=== PATIENT | male | born 1990 | race Hispanic/Latino ===

== ENCOUNTER 2020-10-05 00:29 | Emergency (ER) | payer OTHER, SELFPAY ==
[2020-10-05] MEDS ORDERED: MORPHINE 4 MG SYG ONE ×2 (01:00→03:37)
[2020-10-05] MEDS ORDERED: ONDANSETRON 4MG INJ ONE ×2 (01:00→01:05)
[2020-10-05 02:21] LABS: POTASSIUM 3.9 mmol/L (3.5-5.1)
[2020-10-05 02:26] LABS: ALBUMIN 4.5 g/dL (3.5-5.0); BILIRUBIN,TOTAL 0.7 mg/dL (0.2-1.0); TOTAL PROTEIN, SERUM 8.9 g/dL (6.0-8.3)
[2020-10-05 02:48] LABS: BASOPHILS % (AUTO) 0.4 % (0.0-5.0); EOSINOPHILS % (AUTO) 0.9 % (0.0-8.0); HEMATOCRIT 48.8 % (42-54); LYMPHOCYTES % (AUTO) 18.1 % (21.0-51.0); MEAN CORPUSCULAR HEMOGLOBIN 28.3 pg (27.0-33.0); MEAN CORPUSCULAR VOLUME 83.3 fL (79-99); MONOCYTES % (AUTO) 4.5 % (3.0-13.0); NEUTROPHILS % (AUTO) 75.5 % (40.0-77.0); PLATELET COUNT (AUTO) 239 K/uL (130-400); RED BLOOD CELL COUNT(AUTO) 5.86 MIL/uL (4.50-6.20); RED CELL DISTRIBUTION WIDTH 13.2 % (11.0-15.5); WHITE BLOOD COUNT (AUTO) 16.3 K/uL (4.8-10.8)
== END 2020-10-05 04:03 | disposition home or self-care (01) ==
LOC: EDH 00:29
DX: K80.80 Other cholelithiasis without obstruction (principal)
CPT/HCPCS: 36415; 76705; 80053; 83690; 85025; 96374; 96375; 96376; 99284; J2270 ×2; J2405 ×2

== ENCOUNTER 2020-10-05 11:19 | Inpatient (IN) | payer OTHER, SELFPAY ==
[~2020-10-05] VITALS: Ht 170.2 cm; Wt 126.1 kg
[2020-10-05] MEDS ORDERED: FENTANYL CITRATE PF 50 MCG/1 ML 2ML VIAL ONE (11:52)
[2020-10-05] MEDS ORDERED: ONDANSETRON 4MG INJ ONE (11:52)
[2020-10-05 12:02] LABS: BASOPHILS % (AUTO) 0.3 % (0.0-5.0); EOSINOPHILS % (AUTO) 0.3 % (0.0-8.0); HEMATOCRIT 47.5 % (42-54); LYMPHOCYTES % (AUTO) 8.2 % (21.0-51.0); MEAN CORPUSCULAR HEMOGLOBIN 27.5 pg (27.0-33.0); MEAN CORPUSCULAR HGB CONC 33.9 g/dL (32.0-36.0); MEAN CORPUSCULAR VOLUME 81.2 fL (79-99); MONOCYTES % (AUTO) 5.8 % (3.0-13.0); PLATELET COUNT (AUTO) 233 K/uL (130-400); RED BLOOD CELL COUNT(AUTO) 5.85 MIL/uL (4.50-6.20); RED CELL DISTRIBUTION WIDTH 13.2 % (11.0-15.5); WHITE BLOOD COUNT (AUTO) 20.6 K/uL (4.8-10.8)
[2020-10-05 12:14] LABS: CREATININE 0.8 mg/dL (0.5-1.5)
[2020-10-05 12:19] LABS: ALBUMIN 4.2 g/dL (3.5-5.0); BILIRUBIN,TOTAL 0.9 mg/dL (0.2-1.0); TOTAL PROTEIN, SERUM 8.6 g/dL (6.0-8.3)
[2020-10-05] MEDS ORDERED: ZOSYN 3.375GM+NS 50ML 50 ML IV ONE (12:56)
[2020-10-05 13:26] LABS: APPEARANCE,URINE Cloudy (CLEAR); BILIRUBIN,URINE Negative (NEGATIVE); COLOR,URINE Dark Yellow (YELLOW); GLUCOSE, URINE (UA) Negative (NEGATIVE); KETONES,URINE 40 mg/dL (NEGATIVE); LEUKOCYTE ESTERASE ,URINE Moderate (NEGATIVE); NITRATE,URINE Negative (NEGATIVE); OCCULT BLOOD,URINE Negative (NEGATIVE); PROTEIN,URINE POS 1+ mg/dL (NEGATIVE)
[2020-10-05] MEDS ORDERED: DICYCLOMINE 20MG (10MG/ML) AMP IM ONE (14:11)
[2020-10-05 14:13] LABS: BACTERIA,URINE Few /HPF (None Seen); MUCUS,URINE Rare LPF (None Seen); RBC,URINE 0-1 /HPF (0-1); SQUAMOUS EPITHELIAL CELL,UR Few /HPF (0-2)
[2020-10-05] MEDS ORDERED: KETOROLAC 30MG VIAL (30MG/ML) ONE (14:18)
[2020-10-05] MEDS ORDERED: PANTOPRAZOLE 40 MG/VIAL ONE (14:18)
[2020-10-05] MEDS ORDERED: ONDANSETRON 4MG INJ IV PRN (16:00)
[2020-10-05] MEDS: 0.9%NACL 1000ML 1,000 ML IV SCH (16:00)
[2020-10-05] MEDS ORDERED: MORPHINE 4 MG SYG IV PRN (16:00)
[2020-10-05] MEDS ORDERED: ACETAMINOPHEN 325 MG TAB PO PRN ×2 (16:00)
[2020-10-05] MEDS ORDERED: NITROGLYCERIN 0.4 MG SL TAB SL PRN (16:00)
[2020-10-05] MEDS ORDERED: 0.9%NACL 1000ML 1,000 ML IV SCH (16:00)
[2020-10-05 16:11] LABS: INR 1.16 (0.85-1.15); PROTHROMBIN TIME 12.2 SEC (9.6-11.6)
[2020-10-05] MEDS ORDERED: 0.9%NACL 1000ML 1,000 ML IV ONE (16:16)
[2020-10-05 16:20] LABS: MAGNESIUM 1.7 mg/dL (1.80-2.40)
[2020-10-05 16:22] LABS: HEMOGLOBIN A1C 5.6 % (4.0-6.0)
[2020-10-05] MEDS ORDERED: MAGNESIUM 2GM PREMIX 50ML 50 ML IV ONE (18:11)
[2020-10-05 19:40] VITALS: BP 143/80
[2020-10-05] MEDS ORDERED: MORPHINE 4 MG SYG ONE (20:06)
[2020-10-05] MEDS: FAMOTIDINE 20MG TAB PO SCH (21:00)
[2020-10-05] MEDS: ZOSYN 3.375GM+NS 50ML 50 ML IV SCH (21:00)
[2020-10-05] MEDS ORDERED: KETOROLAC 15MG/ML VIAL (15MG/ML) IM PRN (22:45)
[2020-10-05 23:59] VITALS: BP 104/58
[2020-10-06] MEDS: 0.9%NACL 1000ML 1,000 ML IV SCH ×3 (01:54→21:25)
[2020-10-06 03:39] VITALS: BP 112/56
[2020-10-06 03:58] LABS: HEMATOCRIT 44.1 % (42-54); MEAN CORPUSCULAR HEMOGLOBIN 28.1 pg (27.0-33.0); MEAN CORPUSCULAR HGB CONC 33.8 g/dL (32.0-36.0); MEAN CORPUSCULAR VOLUME 83.1 fL (79-99); PLATELET COUNT (AUTO) 215 K/uL (130-400); RED BLOOD CELL COUNT(AUTO) 5.31 MIL/uL (4.50-6.20); RED CELL DISTRIBUTION WIDTH 13.3 % (11.0-15.5)
[2020-10-06 04:17] LABS: ALBUMIN 3.3 g/dL (3.5-5.0); BILIRUBIN,TOTAL 1.2 mg/dL (0.2-1.0); CREATININE 0.8 mg/dL (0.5-1.5); MAGNESIUM 1.7 mg/dL (1.80-2.40); TOTAL PROTEIN, SERUM 7.3 g/dL (6.0-8.3)
[2020-10-06 04:26] LABS: BAND NEUTROPHILS % (MANUAL) 7 % (0-2); LYMPHOCYTES % (MANUAL) 14 % (22-44); MAN.DIFF COMMENT-IMPRESSION MANUAL DIFFERENTIAL; MONOCYTES % (MANUAL) 4 % (2-9); SEGMENTED NEUTROPHILS % 75 % (40-70)
[2020-10-06] MEDS: ZOSYN 3.375GM+NS 50ML 50 ML IV SCH ×3 (04:26→20:38)
[2020-10-06 04:27] LABS: PLATELET MORPHOLOGY COMMENT ADEQUATE
[2020-10-06 08:00] VITALS: BP 132/77
[2020-10-06] MEDS: FAMOTIDINE 20MG TAB PO SCH ×2 (09:00→19:49)
[2020-10-06] MEDS: MAGNESIUM 2GM PREMIX 50ML 50 ML IV SCH (09:57)
[2020-10-06] MEDS ORDERED: HYDROCODONE/ACETAMINOPHEN 5/325 MG TAB PO PRN (11:15)
[2020-10-06] MEDS ORDERED: KETOROLAC 15MG/ML VIAL (15MG/ML) ONE (11:33)
[2020-10-06 11:50] VITALS: BP 139/67
[2020-10-06 16:00] VITALS: BP 133/75
[2020-10-06 20:31] VITALS: BP 127/64
[2020-10-06] MEDS: KETOROLAC 15MG/ML VIAL (15MG/ML) IV PRN (21:47)
[2020-10-06 23:51] VITALS: BP 100/49
[2020-10-07] VITALS (18 sets, daily range): BP systolic 108–149; BP diastolic 54–82
[2020-10-07] MEDS ORDERED: HYDROMORPHONE 2 MG VIAL (2MG/ML) ONE (00:13)
[2020-10-07] MEDS: HYDROMORPHONE 2 MG VIAL (2MG/ML) IVP PRN ×4 (01:38→04:35)
[2020-10-07 03:55] LABS: BASOPHILS % (AUTO) 0.4 % (0.0-5.0); EOSINOPHILS % (AUTO) 0.6 % (0.0-8.0); HEMATOCRIT 41.5 % (42-54); LYMPHOCYTES % (AUTO) 11.1 % (21.0-51.0); MEAN CORPUSCULAR HGB CONC 33.5 g/dL (32.0-36.0); MEAN CORPUSCULAR VOLUME 83.5 fL (79-99); MONOCYTES % (AUTO) 7.2 % (3.0-13.0); NEUTROPHILS % (AUTO) 80.2 % (40.0-77.0); PLATELET COUNT (AUTO) 180 K/uL (130-400); RED BLOOD CELL COUNT(AUTO) 4.97 MIL/uL (4.50-6.20); RED CELL DISTRIBUTION WIDTH 13.3 % (11.0-15.5); WHITE BLOOD COUNT (AUTO) 16.9 K/uL (4.8-10.8)
[2020-10-07 04:08] LABS: ALBUMIN 2.9 g/dL (3.5-5.0); BILIRUBIN,TOTAL 1.1 mg/dL (0.2-1.0); CREATININE 0.8 mg/dL (0.5-1.5); MAGNESIUM 1.8 mg/dL (1.80-2.40); POTASSIUM 3.9 mmol/L (3.5-5.1); TOTAL PROTEIN, SERUM 6.9 g/dL (6.0-8.3)
[2020-10-07] MEDS: ZOSYN 3.375GM+NS 50ML 50 ML IV SCH ×3 (04:30→21:23)
[2020-10-07] MEDS: 0.9%NACL 1000ML 1,000 ML IV SCH ×2 (06:12→18:11)
[2020-10-07] MEDS: MAGNESIUM 2GM PREMIX 50ML 50 ML IV SCH (06:12)
[2020-10-07] MEDS: FAMOTIDINE 20MG TAB PO SCH ×2 (07:50→21:23)
[2020-10-07] MEDS ORDERED: DEXAMETHASONE SOD PHOSPHATE 10MG/ML 1ML VIAL ONE (10:43)
[2020-10-07] MEDS ORDERED: MIDAZOLAM HCL 1 MG/ML 2ML VIAL ONE (10:43)
[2020-10-07] MEDS ORDERED: LIDOCAINE HCL MPF 1% 5ML VIAL ONE (10:43)
[2020-10-07] MEDS ORDERED: FENTANYL CITRATE PF 50 MCG/1 ML 2ML VIAL ONE (10:46)
[2020-10-07] MEDS ORDERED: PROPOFOL 10 MG/ML 20ML VIAL IV ONE ×2 (10:46→11:50)
[2020-10-07] MEDS ORDERED: ONDANSETRON 4MG INJ ONE (10:46)
[2020-10-07] MEDS ORDERED: ROCURONIUM 10MG/1ML SYR 10 MG/ML ML ONE ×2 (10:46→11:08)
[2020-10-07] MEDS ORDERED: BUPIVACAINE/PF 0.5% 30ML VIAL ONE (11:02)
[2020-10-07] MEDS ORDERED: GLYCOPYRROLATE 1 MG/5 ML SYRINGE ONE (11:41)
[2020-10-07] MEDS ORDERED: NEOSTIGMINE 5MG/5ML SYR IV ONE (11:41)
[2020-10-07] MEDS ORDERED: MEPERIDINE-PF 25 MG/ML SYG ONE ×2 (12:05→12:14)
[2020-10-08] MEDS: KETOROLAC 15MG/ML VIAL (15MG/ML) IV PRN (02:14)
[2020-10-08 04:03] VITALS: BP 94/48
[2020-10-08] MEDS: ZOSYN 3.375GM+NS 50ML 50 ML IV SCH ×3 (05:05→20:40)
[2020-10-08 06:14] LABS: BASOPHILS % (AUTO) 0.2 % (0.0-5.0); LYMPHOCYTES % (AUTO) 7.4 % (21.0-51.0); MEAN CORPUSCULAR HEMOGLOBIN 28.1 pg (27.0-33.0); MEAN CORPUSCULAR HGB CONC 33.6 g/dL (32.0-36.0); MEAN CORPUSCULAR VOLUME 83.7 fL (79-99); MONOCYTES % (AUTO) 5.2 % (3.0-13.0); NEUTROPHILS % (AUTO) 86.9 % (40.0-77.0); PLATELET COUNT (AUTO) 230 K/uL (130-400); RED BLOOD CELL COUNT(AUTO) 4.66 MIL/uL (4.50-6.20); RED CELL DISTRIBUTION WIDTH 13.2 % (11.0-15.5); WHITE BLOOD COUNT (AUTO) 13.3 K/uL (4.8-10.8)
[2020-10-08 06:42] LABS: ALBUMIN 2.8 g/dL (3.5-5.0); BILIRUBIN,TOTAL 0.5 mg/dL (0.2-1.0); CREATININE 0.9 mg/dL (0.5-1.5); POTASSIUM 4.2 mmol/L (3.5-5.1); TOTAL PROTEIN, SERUM 6.9 g/dL (6.0-8.3)
[2020-10-08 07:00] VITALS: BP 106/59
[2020-10-08] MEDS: 0.9%NACL 1000ML 1,000 ML IV SCH ×2 (07:51→21:11)
[2020-10-08] MEDS ORDERED: ACET-2247 PO (09:03)
[2020-10-08] MEDS: FAMOTIDINE 20MG TAB PO SCH ×2 (10:20→20:40)
[2020-10-08 11:00] VITALS: BP 101/55
[2020-10-08 16:00] VITALS: BP 96/53
[2020-10-08 19:29] VITALS: BP 111/64
[2020-10-08 23:44] VITALS: BP 98/50
[2020-10-09 04:43] VITALS: BP 93/45
[2020-10-09 05:41] LABS: BASOPHILS % (AUTO) 0.4 % (0.0-5.0); EOSINOPHILS % (AUTO) 0.6 % (0.0-8.0); HEMATOCRIT 36.2 % (42-54); LYMPHOCYTES % (AUTO) 26.2 % (21.0-51.0); MEAN CORPUSCULAR HGB CONC 33.1 g/dL (32.0-36.0); MEAN CORPUSCULAR VOLUME 84.6 fL (79-99); MONOCYTES % (AUTO) 6.5 % (3.0-13.0); PLATELET COUNT (AUTO) 226 K/uL (130-400); RED BLOOD CELL COUNT(AUTO) 4.28 MIL/uL (4.50-6.20); RED CELL DISTRIBUTION WIDTH 13.3 % (11.0-15.5); WHITE BLOOD COUNT (AUTO) 11.3 K/uL (4.8-10.8)
[2020-10-09 06:12] LABS: ALBUMIN 2.5 g/dL (3.5-5.0); BILIRUBIN,TOTAL 0.4 mg/dL (0.2-1.0); CREATININE 0.9 mg/dL (0.5-1.5); POTASSIUM 4.3 mmol/L (3.5-5.1); TOTAL PROTEIN, SERUM 6.2 g/dL (6.0-8.3)
[2020-10-09] MEDS: ZOSYN 3.375GM+NS 50ML 50 ML IV SCH (06:14)
[2020-10-09 07:00] VITALS: BP 97/43
[2020-10-09] MEDS: FAMOTIDINE 20MG TAB PO SCH (10:27)
[2020-10-09] MEDS: 0.9%NACL 1000ML 1,000 ML IV SCH (10:31)
[2020-10-09 11:00] VITALS: BP 105/53
== END 2020-10-09 13:35 | disposition home or self-care (01) | DRG 418 ==
LOC: EDH 11:19 → EDHIP 11:20 → 3AH 19:43
PROVIDERS: ADMIT Hospitalist; ATTEND Hospitalist
PROC: 0FT44ZZ Resection of Gallbladder, Percutaneous Endoscopic Approach (ICD-10-PCS; principal; 2020-10-07 11:06)
DX: K81.0 Acute cholecystitis (principal); N39.0 Urinary tract infection, site not specified; E83.42 Hypomagnesemia; K76.0 Fatty (change of) liver, not elsewhere classified; K82.8 Other specified diseases of gallbladder; Z20.822 Contact with and (suspected) exposure to COVID-19; Z83.3 Family history of diabetes mellitus
CPT/HCPCS: 36415; 71046; 74018; 74181; 76705; 80053; 80061; 81001; 83036; 83605; 83690; 83735; 85025; 85610; 87040; 87088; 87426; 88304; 93005; C9113; G0378; J0500; J1100; J1170; J1885; J2175; J2250; J2270; J2405; J2543; J2704; J2710; J3010; J3475; J3490; J7030; J7120; U0003

== ENCOUNTER 2021-10-12 17:57 | Emergency (ER) | payer OTHER, SELFPAY ==
[~2021-10-12] VITALS: Ht 170.2 cm; Wt 117.9 kg
[~2021-10-12 17:57] MED LIST: ACET-2247 PO
[2021-10-12 19:43] LABS: BASOPHILS % (AUTO) 0.3 % (0.0-5.0); EOSINOPHILS % (AUTO) 0.1 % (0.0-8.0); HEMATOCRIT 46.4 % (42-54); LYMPHOCYTES % (AUTO) 4.1 % (21.0-51.0); MEAN CORPUSCULAR HEMOGLOBIN 28.1 pg (27.0-33.0); MEAN CORPUSCULAR HGB CONC 34.5 g/dL (32.0-36.0); MEAN CORPUSCULAR VOLUME 81.5 fL (79-99); MONOCYTES % (AUTO) 3.9 % (3.0-13.0); NEUTROPHILS % (AUTO) 91.1 % (40.0-77.0); PLATELET COUNT (AUTO) 170 K/uL (130-400); RED BLOOD CELL COUNT(AUTO) 5.69 MIL/uL (4.50-6.20); RED CELL DISTRIBUTION WIDTH 12.5 % (11.0-15.5); WHITE BLOOD COUNT (AUTO) 15.3 K/uL (4.8-10.8)
[2021-10-12 19:59] LABS: BILIRUBIN,TOTAL 1.2 mg/dL (0.2-1.0); CREATININE 0.9 mg/dL (0.5-1.5)
[2021-10-12 20:00] LABS: APPEARANCE,URINE Clear (CLEAR); BILIRUBIN,URINE Negative (NEGATIVE); COLOR,URINE Yellow (YELLOW); GLUCOSE, URINE (UA) Negative (NEGATIVE); KETONES,URINE 40 mg/dL (NEGATIVE); LEUKOCYTE ESTERASE ,URINE Large (NEGATIVE); NITRATE,URINE Negative (NEGATIVE); OCCULT BLOOD,URINE Negative (NEGATIVE); PH,URINE 8.5 (5.0-8.0); PROTEIN,URINE Negative (NEGATIVE)
[2021-10-12 20:01] LABS: POTASSIUM 2.9 mmol/L (3.5-5.1)
[2021-10-12 20:18] LABS: BACTERIA,URINE Few /HPF (None Seen); RBC,URINE None Seen /HPF (0-1); SQUAMOUS EPITHELIAL CELL,UR 0-2 /HPF (0-2); WBC,URINE 26-50 /HPF (0-1)
[2021-10-12 20:58] LABS: INFLUENZA TYPE A NEGATIVE FOR TYPE A (NEG); INFLUENZA TYPE B NEGATIVE FOR TYPE B (NEG)
[2021-10-12] MEDS ORDERED: METOCLOPRAMIDE 10 MG/2 ML VIAL IVP ONE (21:30)
[2021-10-12] MEDS ORDERED: 0.9%NACL 1000ML 1,000 ML IV ONE (21:30)
[2021-10-12] MEDS ORDERED: CEFTRIAXONE 1G VIAL IVP ONE (21:45)
[2021-10-12] MEDS ORDERED: ONDANSETRON 4MG INJ IVP ONE (21:45)
[2021-10-12] MEDS ORDERED: 0.9%NACL 1000ML 1,983 ML IV ONE (21:45)
[2021-10-12] MEDS ORDERED: POTASSIUM BICARB/CIT AC 25 MEQ TABLET.EFF PO ONE (22:00)
[2021-10-12] MEDS ORDERED: KETOROLAC 30MG VIAL (30MG/ML) IV ONE (22:00)
[2021-10-12 23:49] VITALS: BP 105/67
[2021-10-12] MEDS ORDERED: CEPH500B PO (23:55)
[2021-10-12] MEDS ORDERED: METO-296 PO (23:55)
[2021-10-12] MEDS ORDERED: ONDA4TAB10 PO (23:55)
[2021-10-12] MEDS ORDERED: POTA20PA32 PO (23:55)
== END 2021-10-13 00:12 | disposition home or self-care (01) ==
LOC: EDH 17:57
DX: N12 Tubulo-interstitial nephritis, not specified as acute or chronic (principal); E86.9 Volume depletion, unspecified; E87.6 Hypokalemia; R11.10 Vomiting, unspecified; Z20.822 Contact with and (suspected) exposure to COVID-19; Z90.49 Acquired absence of other specified parts of digestive tract; Z79.899 Other long term (current) drug therapy
CPT/HCPCS: 36415; 74176; 80053; 81001; 83605; 83690; 85025; 87040; 87088; 87635; 87804 ×2; 96361; 96374; 96375; 99284; C9803; J0696; J1885; J2405; J2765; J7030